=== PATIENT | female | born 1960 | race Caucasian/White ===

== ENCOUNTER → 2017-10-23 | Outpatient (CLI) | payer OTHER ==
[~2017-10-23] MED LIST: ALBU90OI; ALPR.5; ASPI325EC PO; ASPI81CH PO; CETI10 PO; CETI5; CLARITIN10 MG PO; CYCL10 PO; DOC250 PO; ESCI20; FAMO20 PO; FEXPSEER PO; GABA300 PO; HYDACE7.5; METO25ER PO; NAPR500 PO; Nitrostat0.4 MG SL; OMEP20ER PO; OXYACE5T PO; Prozac20 MG PO; SULTRIDS PO; VALA500 PO
[2017-10-23 10:09] LABS: BASOPHILS ABSOLUTE AUTO 0.08 K/mm3 (0.00-0.23); BASOPHILS PERCENT AUTO 1 % (0-2); EOSINOPHILS ABSOLUTE AUTO 0.41 K/mm3 (0.00-0.68); EOSINOPHILS PERCENT AUTO 3 % (0-6); Hematocrit 42.1 % (33.0-51.0); IMMATURE GRAN ABSOLUTE AUTO 0.06 K/mm3 (0.00-0.10); IMMATURE GRAN PERCENT AUTO 0 % (0-1); LYMPHOCYTES ABSOLUTE AUTO 6.43 K/mm3 (0.84-5.20); LYMPHOCYTES PERCENT AUTO 43 % (21-46); MONOCYTES ABSOLUTE AUTO 0.94 K/mm3 (0.16-1.47); MONOCYTES PERCENT AUTO 6 % (4-13); Mean Corpuscular HGB 31.5 pg (26.0-34.0); Mean Corpuscular HGB Conc 33.3 g/dL (31.5-36.5); Mean Corpuscular Volume 95 fL (80-100); Mean Platelet Volume 10.1 fL (9.1-12.4); NEUTROPHILS ABSOLUTE AUTO 6.91 K/mm3 (1.96-9.15); NEUTROPHILS PERCENT AUTO 47 % (41-73); Platelet Count 375 K/mm3 (150-400); RDW Coefficient Variation 13.7 % (11.7-14.2); RDW Standard Deviation 47.6 fL (35.1-46.3); Red Blood Cell Count 4.44 M/mm3 (3.80-5.20); White Blood Cell Count 14.83 K/mm3 (4.00-11.30)
[2017-10-23 10:19] LABS: Alanine Aminotransfer (ALT/SGP 24 U/L (12-78); Albumin/Globulin Ratio 1.1 (0.8-1.8); Alk Phos 79 U/L (40-126); Anion Gap 9 mmol/L (6-16); Aspartate Aminotrans (AST/SGOT 15 U/L (12-37); Bilirubin, Total 0.3 mg/dL (0.1-1.0); Blood Urea Nitrogen 18 mg/dL (8-24); Bun/Creatinine Ratio 21.2 (12.0-20.0); CO2, Blood 28 mmol/L (21-32); Calcium, Blood 9.4 mg/dL (8.5-10.1); Chloride, Blood 103 mmol/L (98-108); Creatinine, Blood 0.85 mg/dL (0.40-1.00); Globulin, Blood 3.6 g/dL (2.2-4.0); Glomerular Filtration Rate >60 (60-); Glucose, Blood 90 mg/dL (70-99); Potassium, Blood 4.6 mmol/L (3.5-5.5); Sodium, Blood 140 mmol/L (136-145); Total Protein, Blood 7.6 g/dL (6.4-8.2)
== END | disposition home or self-care (01) ==
LOC: LAB 10:05
PROVIDERS: General Practice
DX: R05 Cough (principal)
CPT/HCPCS: 80053; 85025

== ENCOUNTER → 2018-09-28 | Outpatient (CLI) | payer OTHER ==
[2018-09-28 09:30] LABS: BASOPHILS ABSOLUTE AUTO 0.07 K/mm3 (0.00-0.23); BASOPHILS PERCENT AUTO 1 % (0-2); EOSINOPHILS ABSOLUTE AUTO 0.32 K/mm3 (0.00-0.68); EOSINOPHILS PERCENT AUTO 3 % (0-6); Hematocrit 38.4 % (33.0-51.0); Hemoglobin 12.6 g/dL (11.5-16.0); IMMATURE GRAN ABSOLUTE AUTO 0.03 K/mm3 (0.00-0.10); IMMATURE GRAN PERCENT AUTO 0 % (0-1); LYMPHOCYTES ABSOLUTE AUTO 4.46 K/mm3 (0.84-5.20); LYMPHOCYTES PERCENT AUTO 41 % (21-46); MONOCYTES ABSOLUTE AUTO 0.82 K/mm3 (0.16-1.47); MONOCYTES PERCENT AUTO 8 % (4-13); Mean Corpuscular HGB 31.3 pg (26.0-34.0); Mean Corpuscular HGB Conc 32.8 g/dL (31.5-36.5); Mean Corpuscular Volume 95 fL (80-100); Mean Platelet Volume 10.5 fL (9.1-12.4); NEUTROPHILS ABSOLUTE AUTO 5.23 K/mm3 (1.96-9.15); NEUTROPHILS PERCENT AUTO 48 % (41-73); Platelet Count 324 K/mm3 (150-400); RDW Coefficient Variation 13.7 % (11.7-14.2); RDW Standard Deviation 47.8 fL (35.1-46.3); Red Blood Cell Count 4.03 M/mm3 (3.80-5.20); White Blood Cell Count 10.93 K/mm3 (4.00-11.30)
[2018-09-28 09:51] LABS: Alanine Aminotransfer (ALT/SGP 24 U/L (12-78); Albumin, Blood 3.8 g/dL (3.4-5.0); Albumin/Globulin Ratio 1.3 (0.8-1.8); Alk Phos 64 U/L (40-126); Anion Gap 7 mmol/L (6-16); Aspartate Aminotrans (AST/SGOT 17 U/L (12-37); Bilirubin, Total 0.2 mg/dL (0.1-1.0); Blood Urea Nitrogen 13 mg/dL (8-24); Bun/Creatinine Ratio 16.5 (12.0-20.0); CO2, Blood 28 mmol/L (21-32); Calcium, Blood 8.9 mg/dL (8.5-10.1); Chloride, Blood 106 mmol/L (98-108); Creatinine, Blood 0.79 mg/dL (0.40-1.00); Globulin, Blood 2.9 g/dL (2.2-4.0); Glomerular Filtration Rate >60 (60-); Glucose, Blood 104 mg/dL (70-99); Sodium, Blood 141 mmol/L (136-145); Thyroid Stimulating Hormone 1.037 uIU/mL (0.360-4.800); Total Protein, Blood 6.7 g/dL (6.4-8.2)
[2018-09-28 09:52] LABS: Troponin I <0.017 ng/mL (0.000-0.040)
== END | disposition home or self-care (01) ==
LOC: LAB EV 09:27 → LAB SHORT 09:27
PROVIDERS: Physician Assistant
DX: R00.1 Bradycardia, unspecified (principal); R53.83 Other fatigue
CPT/HCPCS: 80053; 84443; 84484; 85025

== ENCOUNTER → 2018-11-01 | Outpatient (CLI) | payer OTHER ==
[2018-11-01 16:00] LABS: BASOPHILS ABSOLUTE AUTO 0.07 K/mm3 (0.00-0.23); BASOPHILS PERCENT AUTO 1 % (0-2); EOSINOPHILS ABSOLUTE AUTO 0.43 K/mm3 (0.00-0.68); EOSINOPHILS PERCENT AUTO 3 % (0-6); Hematocrit 39.5 % (33.0-51.0); Hemoglobin 13.2 g/dL (11.5-16.0); IMMATURE GRAN ABSOLUTE AUTO 0.04 K/mm3 (0.00-0.10); IMMATURE GRAN PERCENT AUTO 0 % (0-1); LYMPHOCYTES ABSOLUTE AUTO 2.85 K/mm3 (0.84-5.20); LYMPHOCYTES PERCENT AUTO 23 % (21-46); MONOCYTES ABSOLUTE AUTO 1.16 K/mm3 (0.16-1.47); MONOCYTES PERCENT AUTO 9 % (4-13); Mean Corpuscular HGB 30.8 pg (26.0-34.0); Mean Corpuscular HGB Conc 33.4 g/dL (31.5-36.5); Mean Corpuscular Volume 92 fL (80-100); Mean Platelet Volume 10.4 fL (9.1-12.4); NEUTROPHILS ABSOLUTE AUTO 7.99 K/mm3 (1.96-9.15); NEUTROPHILS PERCENT AUTO 64 % (41-73); Platelet Count 324 K/mm3 (150-400); RDW Coefficient Variation 12.9 % (11.7-14.2); RDW Standard Deviation 43.3 fL (35.1-46.3); Red Blood Cell Count 4.28 M/mm3 (3.80-5.20); White Blood Cell Count 12.54 K/mm3 (4.00-11.30)
[2018-11-01 16:12] LABS: Alanine Aminotransfer (ALT/SGP 17 U/L (12-78); Albumin, Blood 3.5 g/dL (3.4-5.0); Albumin/Globulin Ratio 0.9 (0.8-1.8); Alk Phos 74 U/L (40-126); Anion Gap 12 mmol/L (6-16); Aspartate Aminotrans (AST/SGOT 15 U/L (12-37); Bilirubin, Total 0.2 mg/dL (0.1-1.0); Blood Urea Nitrogen 9 mg/dL (8-24); Bun/Creatinine Ratio 11.3 (12.0-20.0); CO2, Blood 25 mmol/L (21-32); Calcium, Blood 9.5 mg/dL (8.5-10.1); Chloride, Blood 101 mmol/L (98-108); Globulin, Blood 3.8 g/dL (2.2-4.0); Glomerular Filtration Rate >60 (60-); Glucose, Blood 119 mg/dL (70-99); Potassium, Blood 3.6 mmol/L (3.5-5.5); Sodium, Blood 138 mmol/L (136-145); Total Protein, Blood 7.3 g/dL (6.4-8.2)
[2018-11-04 09:18] LABS: B. HENSELAE IGG Negative titer ({null, Neg:<1:320}); B. HENSELAE IGM Negative titer ({null, Neg:<1:100})
== END ==
LOC: LAB SHORT 15:56 → LAB EV 15:56
PROVIDERS: Physician Assistant
DX: R50.9 Fever, unspecified (principal); R53.83 Other fatigue
CPT/HCPCS: 80053; 83690; 85025; 86611

== ENCOUNTER → 2020-03-15 | Outpatient (CLI) | payer OTHER | END | disposition home or self-care (01) | LOC: LAB 09:10 → LAB SHORT 09:10 | DX: R32 Unspecified urinary incontinence (principal) | CPT/HCPCS: 87086 ==

== ENCOUNTER 2021-04-10 14:59 | Emergency (ER) | payer OTHER ==
[~2021-04-10] VITALS: Ht 167.6 cm; Wt 59.0 kg
[~2021-04-10 14:59] MED LIST changes: +DULO60 PO
[2021-04-10] MEDS ORDERED: EPIPEN0.3 MG/0.3 IM (16:02)
== END 2021-04-10 16:49 | disposition home or self-care (01) ==
LOC: ER 14:59
DX: T78.40XA Allergy, unspecified, initial encounter (principal); F17.200 Nicotine dependence, unspecified, uncomplicated; Z91.011 Allergy to milk products; Z91.018 Allergy to other foods; Z88.8 Allergy status to other drugs, medicaments and biological substances; Z79.899 Other long term (current) drug therapy; Z79.82 Long term (current) use of aspirin
CPT/HCPCS: 93005; 93010; 99284-25

== ENCOUNTER 2023-08-14 09:58 | Day surgery (SDC) | payer OTHER ==
[~2023-08-14] VITALS: Ht 162.6 cm; Wt 59.9 kg
[~2023-08-14 09:58] MED LIST changes: +CYCLOBENZAPRINE5 MG PO; +DOXY100 PO; +EPIPEN0.3 MG/0.3 IM; +FLUO10 PO; +IBUP800 PO
[2023-08-14] MEDS ORDERED: FOSAMAX70 MG PO (10:47)
--- NOTE | 2023-08-14 10:49 | NUR ---
08/14/23 1049 Yareli Fernández AT BEDSIDE
[2023-08-14 14:15] VITALS: BP 133/81
--- NOTE | 2023-08-14 15:02 | NUR ---
08/14/23 1502 Lisa Sibley IV DC WITH NO ISSUES. CANNULA INTACT AND PT TOLERATED WELL.
== END 2023-08-14 15:13 | disposition home or self-care (01) ==
LOC: ORSCSDS 09:58
PROVIDERS: Orthopaedic Surgery
PROC: 0RNJ4ZZ Release Right Shoulder Joint, Percutaneous Endoscopic Approach (ICD-10-PCS; principal; 2023-08-14 12:30)
PROC: 0LM14ZZ Reattachment of Right Shoulder Tendon, Percutaneous Endoscopic Approach (ICD-10-PCS; principal; 2023-08-14 12:30)
DX: M75.121 Complete rotator cuff tear or rupture of right shoulder, not specified as traumatic (principal); M71.9 Bursopathy, unspecified; I10 Essential (primary) hypertension; J45.909 Unspecified asthma, uncomplicated; F41.8 Other specified anxiety disorders; Z79.899 Other long term (current) drug therapy
CPT/HCPCS: C1713; J0171; J0690; J1100; J1170; J2250; J2405; J2704; J3010; J7120

== ENCOUNTER 2024-03-15 17:15 | Emergency (ER) | payer OTHER ==
[~2024-03-15] VITALS: Ht 165.1 cm; Wt 58.1 kg
[~2024-03-15 17:15] MED LIST changes: +FOSAMAX70 MG PO
[2024-03-15] MEDS ORDERED: Ondansetron HCl 2 MG / ML 2ML Vial IV ONE ×2 (17:30→20:30)
[2024-03-15] MEDS ORDERED: Ketorolac Tromethamine 15mg Vial IV ONE (17:30)
[2024-03-15 17:50] LABS: BASOPHILS ABSOLUTE AUTO 0.06 K/mm3 (0.00-0.23); BASOPHILS PERCENT AUTO 0 % (0-2); EOSINOPHILS ABSOLUTE AUTO 0.28 K/mm3 (0.00-0.68); EOSINOPHILS PERCENT AUTO 2 % (0-6); Hematocrit 41.7 % (33.0-51.0); Hemoglobin 13.7 g/dL (11.5-16.0); IMMATURE GRAN ABSOLUTE AUTO 0.04 K/mm3 (0.00-0.10); IMMATURE GRAN PERCENT AUTO 0 % (0-1); LYMPHOCYTES ABSOLUTE AUTO 5.11 K/mm3 (0.84-5.20); LYMPHOCYTES PERCENT AUTO 37 % (21-46); MONOCYTES ABSOLUTE AUTO 1.26 K/mm3 (0.16-1.47); MONOCYTES PERCENT AUTO 9 % (4-13); Mean Corpuscular HGB 31.6 pg (26.0-34.0); Mean Corpuscular HGB Conc 32.9 g/dL (31.5-36.5); Mean Corpuscular Volume 96 fL (80-100); Mean Platelet Volume 10.9 fL (9.1-12.4); NEUTROPHILS ABSOLUTE AUTO 6.99 K/mm3 (1.96-9.15); NEUTROPHILS PERCENT AUTO 51 % (41-73); Platelet Count 373 K/mm3 (150-400); RDW Coefficient Variation 13.5 % (11.7-14.2); RDW Standard Deviation 48.3 fL (35.1-46.3); Red Blood Cell Count 4.33 M/mm3 (3.80-5.20); White Blood Cell Count 13.74 K/mm3 (4.00-11.30)
[2024-03-15 18:08] LABS: Albumin/Globulin Ratio 1.1 (0.8-1.8); Bilirubin, Total 0.3 mg/dL (0.1-1.0); Calcium, Blood 9.1 mg/dL (8.5-10.1); Creatinine, Blood 0.78 mg/dL (0.40-1.00); Globulin, Blood 3.6 g/dL (2.2-4.0); Potassium, Blood 3.8 mmol/L (3.5-5.5); Total Protein, Blood 7.6 g/dL (6.4-8.2)
[2024-03-15 19:02] LABS: Source, Urine Clean Catch
[2024-03-15 19:13] LABS: Appearance, Urine Clear (Clear); Bilirubin, Urine Neg (Neg); Blood, Urine 4+ (Neg); Color, Urine Yellow (P-Yellow); Glucose Qualitative, Urine Neg (Neg); Ketones, Urine Neg (Neg); Leukocyte Esterase, Urine Neg (Neg); Nitrite, Urine Neg (Neg); Protein, Urine 1+ (Neg); Urobilinogen, Urine NORM (Normal); pH, Urine 6.5 (5.0-8.0)
[2024-03-15 19:28] LABS: Bacteria Rare /hpf; Red Blood Cells, Urine 0-2 /hpf (0-2); Squamous Epithelial Cells Rare /hpf (Few); White Blood Cells, Urine 0-2 /hpf (0-5)
[2024-03-15] MEDS ORDERED: VALTREX50013 PO (19:38)
[2024-03-15] MEDS ORDERED: NS 1,000 ML IV SCH (20:30)
[2024-03-15 21:32] VITALS: BP 130/85
[2024-03-15] MEDS ORDERED: RX Prepack 2 Tabs Ondansetron ODT 4MG UD ONE (21:40)
[2024-03-15] MEDS ORDERED: Bismuth Subsalicylate 262 MG Chew PO ONE (21:40)
[2024-03-15] MEDS ORDERED: ONDA4ODT MM (21:41)
== END 2024-03-15 22:02 | disposition home or self-care (01) ==
LOC: ER 17:15
PROVIDERS: Physician Assistant
DX: R10.31 Right lower quadrant pain (principal); R11.2 Nausea with vomiting, unspecified; E86.0 Dehydration; I10 Essential (primary) hypertension; Z91.011 Allergy to milk products; Z91.018 Allergy to other foods; Z91.030 Bee allergy status; Z88.1 Allergy status to other antibiotic agents
CPT/HCPCS: 74177; 80053; 81001; 83690; 85025; 96361; 96374-59; 96375; 96376; 99284-25; A9270; J1885; J2405; J7030; Q9967

== ENCOUNTER → 2024-11-18 | Outpatient (CLI) | payer OTHER ==
[~2024-11-18] MED LIST changes: +ONDA4ODT MM; +VALTREX50013 PO
[2024-11-24 12:11] LABS: CALPROTECTIN,FECAL 31 ug/g (<=49)
== END ==
LOC: LAB 09:45 → LAB SHORT 09:45
PROVIDERS: Physician Assistant Medical
DX: R10.13 Epigastric pain (principal)
CPT/HCPCS: 83993

== ENCOUNTER 2025-01-26 11:57 | Day surgery (SDC) | payer OTHER ==
[~2025-01-26] VITALS: Ht 165.1 cm; Wt 58.7 kg
[~2025-01-26 11:57] MED LIST changes: +Lactated Ringer's 1,000 ML IV ONE; +propofoL 50 ML IV ONE
[2025-01-26] MEDS ORDERED: OMEP20ER (12:38)
[2025-01-26] MEDS ORDERED: NITR.4SL (12:38)
[2025-01-26] MEDS ORDERED: Lactated Ringer's 1,000 ML IV ONE (14:13)
--- NOTE | 2025-01-26 14:57 | NUR ---
01/26/25 1457 Jl Arellano CHARTING UNDER GER Omalley RN. JL Omalley RN PRESENT FOR ENTIRE PROCEDURE. NURSE SEDATION GIVEN WITH PHYSICIAN DIRECTED DURING ENTIRE PROCEDURE. VERONIQUE CYRSEISMOGRAPH COMPUTER FOR NURSE SEDATION.
[2025-01-26] MEDS ORDERED: propofoL 50 ML IV ONE (15:09)
[2025-01-26 15:53] VITALS: BP 136/86
== END 2025-01-26 15:40 | disposition home or self-care (01) ==
LOC: ORSCSDS 11:57
PROVIDERS: Internal Medicine Gastroenterology
PROC: 0DBK8ZX Excision of Ascending Colon, Via Natural or Artificial Opening Endoscopic, Diagnostic (ICD-10-PCS; principal; 2025-01-26 13:30)
PROC: 0DBM8ZX Excision of Descending Colon, Via Natural or Artificial Opening Endoscopic, Diagnostic (ICD-10-PCS; principal; 2025-01-26 13:30)
PROC: 0DJ08ZZ Inspection of Upper Intestinal Tract, Via Natural or Artificial Opening Endoscopic (ICD-10-PCS; principal; 2025-01-26 13:30)
DX: R10.13 Epigastric pain (principal); K21.9 Gastro-esophageal reflux disease without esophagitis; R19.5 Other fecal abnormalities; Z86.0101 Personal history of adenomatous and serrated colon polyps; D12.2 Benign neoplasm of ascending colon; D12.4 Benign neoplasm of descending colon; F41.9 Anxiety disorder, unspecified; F32.A Depression, unspecified; Z79.899 Other long term (current) drug therapy
CPT/HCPCS: 88305; J2704; J7120

== ENCOUNTER 2025-06-30 15:19 | Emergency (ER) | payer OTHER ==
[~2025-06-30] VITALS: Ht 165.1 cm; Wt 58.5 kg
[~2025-06-30 15:19] MED LIST changes: -Lactated Ringer's 1,000 ML IV ONE; +NITR.4SL; +OMEP20ER; -propofoL 50 ML IV ONE
[2025-06-30 15:27] VITALS: BP 163/85
[2025-06-30] MEDS ORDERED: Lidocaine 4% 1 Patch TOP ONE (15:45)
[2025-06-30] MEDS ORDERED: Ketorolac Tromethamine 15mg Vial IM ONE (15:45)
[2025-06-30] MEDS ORDERED: ASPERFLEX1 EACH TOP (16:16)
== END 2025-06-30 16:25 | disposition home or self-care (01) ==
LOC: ER 15:19
DX: R07.89 Other chest pain (principal); Z91.0110 Allergy to milk products, unspecified; Z79.899 Other long term (current) drug therapy; Z91.018 Allergy to other foods; Z91.030 Bee allergy status; F17.200 Nicotine dependence, unspecified, uncomplicated
CPT/HCPCS: 71046; 96372; 99283-25; A9270; J1885

== ENCOUNTER → 2025-07-11 | Outpatient (CLI) | payer MEDICARE, OTHER ==
[~2025-07-11] MED LIST changes: +ASPERFLEX1 EACH TOP
[2025-07-13 07:54] LABS: HIV 1,2 COMBO ANTIGEN/ANTIBODY Negative (Negative)
[2025-07-13 10:41] LABS: HEPATITIS C AB CIA INTERP Negative (Negative); HEPATITIS C ANTIBODY CIA INDEX <0.02 IV
== END ==
LOC: LAB SHORT 09:00 → LAB 09:00
PROVIDERS: Student in an Organized Health Care Education/Training Program
DX: Z13.1 Encounter for screening for diabetes mellitus (principal); E55.9 Vitamin D deficiency, unspecified; Z11.4 Encounter for screening for human immunodeficiency virus [HIV]; Z11.59 Encounter for screening for other viral diseases
CPT/HCPCS: 82306; 83036; 86803; 87389